=== PATIENT | female | born 1950 | race Caucasian/White ===

== ENCOUNTER → 2016-09-10 | Outpatient (CLI) | payer MEDICARE, OTHER | END | disposition home or self-care (01) | LOC: Rad HDHVI 14:37 | PROVIDERS: ATTEND Internal Medicine Cardiovascular Disease | DX: I73.9 Peripheral vascular disease, unspecified (principal) | CPT/HCPCS: 93926 ==

== ENCOUNTER → 2017-02-05 | Outpatient (CLI) | payer MEDICARE, OTHER ==
[2017-02-05 16:22] LABS: BUN/Creatinine Ratio 35.7; Potassium 4.4 mmol/L (3.5-5.1)
[2017-02-05 16:24] LABS: Basophils # (auto) 0 uL; Basophils % (auto) 0.5 % (0.0-2.0); Eosinophils # (auto) 0 uL; Eosinophils % (auto) 0.5 % (0.0-7.0); Hematocrit 42.2 % (36.0-46.0); Hemoglobin 14.2 g/dL (12.2-16.2); Lymphocytes % (auto) 33.1 % (10.0-50.0); Mean Corpuscular Hemoglobin 28.8 pg (28.0-32.0); Mean Corpuscular Hgb Conc. 33.8 g/dL (32.0-36.0); Mean Corpuscular Volume 85.2 fL (80.0-100.0); Mean Platelet Volume 8.9 fL (6.9-10.8); Monocytes # (auto) 0.3 uL; Monocytes % (auto) 4.3 % (0.0-12.0); Neutrophils # (auto) 3.8 uL; Neutrophils % (auto) 61.6 % (37.0-80.0); Nucleated Red Blood Cells % 0.1 %; Platelet Count (auto) 180 10^3/uL (140-450); White Blood Cell 6.1 10^3/uL (4.4-10.8)
[2017-02-05 16:36] LABS: INR 0.96 (0.9-1.15); Partial Thromboplastin Time 23.3 sec (22.64-33.71); Prothrombin Time 10.5 sec (9.37-12.3)
== END | disposition home or self-care (01) ==
LOC: Rad HDHVI 14:06
PROVIDERS: ATTEND Internal Medicine Cardiovascular Disease
DX: Z01.818 Encounter for other preprocedural examination (principal); I10 Essential (primary) hypertension; D64.9 Anemia, unspecified; R79.1 Abnormal coagulation profile
CPT/HCPCS: 36415; 80048; 85025; 85610; 85730

== ENCOUNTER → 2017-09-24 | Outpatient (CLI) | payer MEDICARE, OTHER ==
[~2017-09-24] MED LIST: EPINEPHrine HCL 1 MG/10 ML SYRG ONE; IOHEXOL 350 MG/ML 100ML IJ ONE; LIDOCAINE 1% (LOCAL ANESTH.) PF 5ml SDV ONE; methylPREDNISolone SOD SUCC 125 MG/2 ML VL IV ONE; methylPREDNISolone SOD SUCC 125 MG/2 ML VL ONE
[2017-09-24 11:25] VITALS: BP 112/59
[2017-09-24 12:20] VITALS: BP 125/69
== END | disposition home or self-care (01) ==
LOC: Rad HDHVI 11:13
PROVIDERS: ATTEND Internal Medicine Cardiovascular Disease
DX: J98.2 Interstitial emphysema (principal); R63.4 Abnormal weight loss; J47.9 Bronchiectasis, uncomplicated; I10 Essential (primary) hypertension; I25.10 Atherosclerotic heart disease of native coronary artery without angina pectoris; K59.00 Constipation, unspecified; R07.9 Chest pain, unspecified; I70.0 Atherosclerosis of aorta; Z90.3 Acquired absence of stomach [part of]; Z90.49 Acquired absence of other specified parts of digestive tract
CPT/HCPCS: 71260; 74177; 82565; 96374; G0463; J2930; Q9967

== ENCOUNTER → 2017-11-11 | Outpatient (CLI) | payer MEDICARE, BC | END | disposition home or self-care (01) | LOC: Rad HDHVI 11:27 | PROVIDERS: ATTEND Internal Medicine Cardiovascular Disease | DX: I07.1 Rheumatic tricuspid insufficiency (principal); I10 Essential (primary) hypertension; E11.9 Type 2 diabetes mellitus without complications; I25.5 Ischemic cardiomyopathy; I73.9 Peripheral vascular disease, unspecified; I20.9 Angina pectoris, unspecified | CPT/HCPCS: 93306; 93926 ==

== ENCOUNTER → 2017-11-28 | Outpatient (CLI) | payer MEDICARE, BC ==
[~2017-11-28] VITALS: Ht 175.3 cm; Wt 56.2 kg
[~2017-11-28] MED LIST changes: +ADENOSINE 47 MG in GIVE UN-DILUTED 0 ML IV ONE; +ADENOSINE 90 MG/30 ML INJ IV ONE; -EPINEPHrine HCL 1 MG/10 ML SYRG ONE; -IOHEXOL 350 MG/ML 100ML IJ ONE; -LIDOCAINE 1% (LOCAL ANESTH.) PF 5ml SDV ONE; -methylPREDNISolone SOD SUCC 125 MG/2 ML VL IV ONE; -methylPREDNISolone SOD SUCC 125 MG/2 ML VL ONE
== END | disposition home or self-care (01) ==
LOC: Rad HDHVI 09:04
PROVIDERS: ATTEND Internal Medicine Cardiovascular Disease
DX: I10 Essential (primary) hypertension (principal); I73.9 Peripheral vascular disease, unspecified; E11.9 Type 2 diabetes mellitus without complications; I20.9 Angina pectoris, unspecified; I25.5 Ischemic cardiomyopathy
CPT/HCPCS: 78452; 93005; 96374; 96375; A9500; J0153

== ENCOUNTER → 2018-01-28 | Outpatient (CLI) | payer MEDICARE, BC ==
[2018-01-28 16:37] LABS: Basophils # (auto) 0 uL; Basophils % (auto) 0.5 % (0.0-2.0); Eosinophils # (auto) 0.4 uL; Eosinophils % (auto) 6.5 % (0.0-7.0); Hematocrit 38.4 % (36.0-46.0); Hemoglobin 12.8 g/dL (12.2-16.2); Lymphocytes # (auto) 2.6 uL; Lymphocytes % (auto) 38.2 % (10.0-50.0); Mean Corpuscular Hemoglobin 28.9 pg (28.0-32.0); Mean Corpuscular Hgb Conc. 33.5 g/dL (32.0-36.0); Mean Corpuscular Volume 86.5 fL (80.0-100.0); Monocytes # (auto) 0.4 uL; Monocytes % (auto) 6.4 % (0.0-12.0); Neutrophils # (auto) 3.2 uL; Neutrophils % (auto) 48.4 % (37.0-80.0); Nucleated Red Blood Cells % 0.1 %; Platelet Count (auto) 168 10^3/uL (140-450); Red Blood Cells 4.44 10^6/uL (4.0-5.20); Red Cell Distribution Width 13.2 % (11.8-14.3); White Blood Cell 6.7 10^3/uL (4.4-10.8)
[2018-01-28 16:52] LABS: Free T4 (Free Thyroxine) 0.97 ng/dL (0.89-1.76)
[2018-01-28 16:57] LABS: Albumin 3.2 g/dL (3.4-5.0); Calcium 8.6 mg/dL (8.5-10.1); Potassium 4.5 mmol/L (3.5-5.1)
[2018-01-28 17:00] LABS: Bilirubin, Total 0.3 mg/dL (0.2-1.0); Total Protein 6.6 g/dL (6.4-8.2)
[2018-01-28 17:02] LABS: INR 1.08 (0.9-1.15); Partial Thromboplastin Time 25.8 sec (23.78-33.04); Prothrombin Time 11.5 sec (9.27-12.13)
== END | disposition home or self-care (01) ==
LOC: LAB 13:01
PROVIDERS: ATTEND Internal Medicine Cardiovascular Disease
DX: E78.5 Hyperlipidemia, unspecified (principal); K74.1 Hepatic sclerosis; E03.9 Hypothyroidism, unspecified; E55.9 Vitamin D deficiency, unspecified; E11.9 Type 2 diabetes mellitus without complications; D51.9 Vitamin B12 deficiency anemia, unspecified; K74.60 Unspecified cirrhosis of liver; D64.9 Anemia, unspecified
CPT/HCPCS: 36415; 80053; 80061; 82306; 82607; 83036; 84439; 84443; 85025; 85610; 85730

== ENCOUNTER → 2018-02-25 | Outpatient (CLI) | payer MEDICARE, BC | END | disposition home or self-care (01) | LOC: Rad HDHVI 15:36 | PROVIDERS: ATTEND Internal Medicine | DX: J18.9 Pneumonia, unspecified organism (principal) | CPT/HCPCS: 71046 ==

== ENCOUNTER 2018-03-23 09:29 | Emergency (ER) | payer MEDICARE, BC, OTHER ==
[~2018-03-23] VITALS: Ht 175.3 cm; Wt 54.9 kg
[2018-03-23 10:21] LABS: Basophils # (auto) 0 uL; Eosinophils # (auto) 0.2 uL; Lymphocytes # (auto) 1.3 uL; Monocytes # (auto) 0.3 uL; Neutrophils # (auto) 5.4 uL
[2018-03-23 10:23] LABS: Basophils % (auto) 0.3 % (0.0-2.0); Eosinophils % (auto) 3.1 % (0.0-7.0); Hematocrit 34.9 % (36.0-46.0); Hemoglobin 11.3 g/dL (12.2-16.2); Lymphocytes % (auto) 18.1 % (10.0-50.0); Mean Corpuscular Hemoglobin 26.3 pg (28.0-32.0); Mean Corpuscular Hgb Conc. 32.4 g/dL (32.0-36.0); Mean Corpuscular Volume 81.3 fL (80.0-100.0); Monocytes % (auto) 4.4 % (0.0-12.0); Neutrophils % (auto) 74.1 % (37.0-80.0); Platelet Count (auto) 159 10^3/uL (140-450); Red Blood Cells 4.29 10^6/uL (4.0-5.20); Red Cell Distribution Width 14.9 % (11.8-14.3); White Blood Cell 7.4 10^3/uL (4.4-10.8)
[2018-03-23 10:31] LABS: Alanine Aminotransferase 53 U/L (13-56); Albumin 3.2 g/dL (3.4-5.0); Anion Gap 7 (5-15); Aspartate Aminotransferase 30 U/L (15-37); BUN/Creatinine Ratio 31.7; Blood Urea Nitrogen 20 mg/dL (7-18); Carbon Dioxide 30 mmol/L (21-32); Chloride 99 mmol/L (98-107); GFR African American 121 mL/min; GFR Non-African American 100 mL/min; Glucose 375 mg/dL (74-106); Potassium 4.2 mmol/L (3.5-5.1); Sodium 136 mmol/L (136-145)
[2018-03-23 10:35] LABS: Alkaline Phosphatase 146 U/L (45-117); Bilirubin, Total 0.3 mg/dL (0.2-1.0); Total Protein 6.7 g/dL (6.4-8.2)
[2018-03-23] MEDS ORDERED: LEVOFLOXACIN 500 MG TAB PO ONE (11:30)
[2018-03-23] MEDS ORDERED: cefTRIAXone 1GM/50ML D5W 50 ML IV ONE (11:45)
[2018-03-23 12:24] VITALS: BP 130/70
== END 2018-03-23 12:56 | disposition home or self-care (01) ==
LOC: EDBD 09:29 → ER 09:29
DX: L03.115 Cellulitis of right lower limb (principal); E11.9 Type 2 diabetes mellitus without complications; Z88.2 Allergy status to sulfonamides; Z91.040 Latex allergy status; Z88.6 Allergy status to analgesic agent; W19.XXXA Unspecified fall, initial encounter; Y93.01 Activity, walking, marching and hiking; Y92.098 Other place in other non-institutional residence as the place of occurrence of the external cause; Y99.8 Other external cause status
CPT/HCPCS: 36415; 71045; 72170; 73562; 80053; 83880; 84484; 85025; 87040; 96365; 99284; J0696

== ENCOUNTER → 2018-04-23 | Outpatient (CLI) | payer MEDICARE, OTHER ==
[~2018-04-23] MED LIST changes: -ADENOSINE 47 MG in GIVE UN-DILUTED 0 ML IV ONE; -ADENOSINE 90 MG/30 ML INJ IV ONE; +ALBUTEROL SULF 2.5 MG/0.5ML(0.5%) NEB SOLN ONE; +SODIUM CHLORIDE 0.9 % NEB SOLN 3ML NEB ONE
== END | disposition home or self-care (01) ==
LOC: RT 08:52
PROVIDERS: ATTEND Internal Medicine Pulmonary Disease
DX: J84.10 Pulmonary fibrosis, unspecified (principal); R06.02 Shortness of breath
CPT/HCPCS: 94010; J7611

== ENCOUNTER → 2018-07-01 | Outpatient (CLI) | payer MEDICARE, OTHER ==
[2018-07-01 16:28] LABS: Urine Blood Negative /uL (Negative); Urine Specific Gravity 1.041 (1.001-1.035)
== END | disposition home or self-care (01) ==
LOC: LAB 13:04
PROVIDERS: ATTEND Internal Medicine Cardiovascular Disease
DX: N39.0 Urinary tract infection, site not specified (principal)
CPT/HCPCS: 81003; 87086

== ENCOUNTER 2018-08-24 00:48 | Inpatient (IN) | payer MEDICARE, OTHER ==
[~2018-08-24] VITALS: Ht 177.8 cm; Wt 53.0 kg
[2018-08-24 01:41] LABS: Basophils # (auto) 0 uL; Basophils % (auto) 0.5 % (0.0-2.0); Eosinophils # (auto) 0.1 uL; Mean Corpuscular Hemoglobin 26.8 pg (28.0-32.0); Mean Corpuscular Hgb Conc. 32.2 g/dL (32.0-36.0); Monocytes # (auto) 0.4 uL
[2018-08-24 01:43] LABS: Hemoglobin 11.3 g/dL (12.2-16.2); Lymphocytes # (auto) 1.3 uL; Mean Corpuscular Volume 83.1 fL (80.0-100.0); Monocytes % (auto) 4.2 % (0.0-12.0); Neutrophils # (auto) 7.6 uL; Neutrophils % (auto) 80.3 % (37.0-80.0); Platelet Count (auto) 184 10^3/uL (140-450); Red Blood Cells 4.21 10^6/uL (4.0-5.20); Red Cell Distribution Width 15.3 % (11.8-14.3); White Blood Cell 9.5 10^3/uL (4.4-10.8)
[2018-08-24 01:59] LABS: Alanine Aminotransferase 47 U/L (13-56); Albumin 3.5 g/dL (3.4-5.0); Anion Gap 8 (5-15); Aspartate Aminotransferase 24 U/L (15-37); BUN/Creatinine Ratio 28.4; Blood Urea Nitrogen 19 mg/dL (7-18); Calcium 8.4 mg/dL (8.5-10.1); Carbon Dioxide 31 mmol/L (21-32); Chloride 99 mmol/L (98-107); GFR African American 113 mL/min; GFR Non-African American 93 mL/min; Magnesium 1.8 mg/dL (1.6-2.6); Potassium 4.1 mmol/L (3.5-5.1); Sodium 138 mmol/L (136-145)
[2018-08-24 02:04] LABS: Alkaline Phosphatase 174 U/L (45-117); Bilirubin, Total 0.4 mg/dL (0.2-1.0)
[2018-08-24 02:06] LABS: Glucose 425 mg/dL (74-106)
[2018-08-24] MEDS ORDERED: InsuLIN REG 1unit/0.01ml Soln (100units/ml) SC ONE (03:00)
[2018-08-24] MEDS ORDERED: SODIUM CHLORIDE 0.9% 1,000 ML IV ONE ×4 (03:00→21:00)
[2018-08-24] MEDS ORDERED: ACETAMINOPHEN 325 MG TAB PO ONE (03:00)
[2018-08-24 03:09] LABS: Urine Bacteria NONE SEEN /hpf (None Seen); Urine Blood Negative /uL (Negative); Urine Specific Gravity 1.029 (1.001-1.035); Urine WBC <1 /hpf (0 - 5)
[2018-08-24] MEDS ORDERED: methylPREDNISolone SOD SUCC 125 MG/2 ML VL IV ONE (08:00)
[2018-08-24] MEDS ORDERED: PIPERACILLIN-TAZOB 3.375GM 100 ML IV ONE (08:00)
[2018-08-24] MEDS ORDERED: BUPR300T28 PO (10:03)
[2018-08-24] MEDS ORDERED: MAGN400T5 PO (10:03)
[2018-08-24] MEDS ORDERED: TRIA0.5C10 TOP (10:03)
[2018-08-24] MEDS ORDERED: PREG150C PO (10:03)
[2018-08-24] MEDS ORDERED: FLUC200T50 PO ×2 (10:03→16:46)
[2018-08-24] MEDS ORDERED: LIDO2SOL18 PO (10:03)
[2018-08-24] MEDS ORDERED: HYDR-4924 PO (10:03)
[2018-08-24] MEDS ORDERED: NYST1POW12 XX (10:03)
[2018-08-24] MEDS ORDERED: LEVO112T35 PO (10:03)
[2018-08-24] MEDS ORDERED: Glucerna Carbsteady SHAKE Vanilla 8oz PO ONE (13:15)
[2018-08-24] MEDS ORDERED: InsuLIN REG 1unit/0.01ml Soln (100units/ml) ONE (14:08)
[2018-08-24] MEDS ORDERED: InsuLIN REG 1unit/0.01ml Soln (100units/ml) IV ONE ×2 (14:15→21:00)
[2018-08-24] MEDS ORDERED: CLOT1CRE13 TOP (16:46)
[2018-08-24] MEDS ORDERED: PRIM50TA29 PO (16:46)
[2018-08-24] MEDS ORDERED: NITROGLYCERIN 0.4 MG SL TAB SL PRN (17:00)
[2018-08-24] MEDS ORDERED: INSULIN LANTUS (GLARGINE) 1 /0.01ml (100units/ml) SC ONE (17:00)
[2018-08-24] MEDS ORDERED: ONDANSETRON HCL 4 MG/2 ML VIAL IV PRN (17:00)
[2018-08-24] MEDS ORDERED: MORPHINE SULF INJ 2 MG/ML SYRINGE 1ML IV PRN ×2 (17:00)
[2018-08-24] MEDS ORDERED: HYDROcodone-ACET 5/325MG TAB PO PRN (17:00)
[2018-08-24] MEDS ORDERED: DEXTROSE (50%) 50ML SYRG IV PRN (17:00)
[2018-08-24] MEDS ORDERED: ACETAMINOPHEN 500 MG TAB PO PRN (17:00)
[2018-08-24] MEDS: SODIUM CHLORIDE 0.9% 1,000 ML IV SCH (17:18)
[2018-08-24] MEDS ORDERED: cefTRIAXone 1GM/50ML D5W 50 ML IV SCH (17:30)
[2018-08-24] MEDS ORDERED: metroNIDAZOLE 500MG/100ML 100 ML IV SCH (18:00)
[2018-08-24] MEDS ORDERED: AZITHROMYCIN 500MG/ 250ML 250 ML IV SCH (18:00)
[2018-08-24] MEDS: IPRATROPIUM BROM 0.5 MG/2.5ML INH SOL NEB SCH (18:19)
[2018-08-24] MEDS: ALBUTEROL SULF 2.5 MG/0.5ML(0.5%) NEB SOLN NEB SCH (18:19)
[2018-08-24] MEDS: Glucerna Carbsteady SHAKE Stawberry 8oz PO SCH (19:15)
[2018-08-24] MEDS: InsuLIN REG 1unit/0.01ml Soln (100units/ml) SC SCH (20:00)
[2018-08-24] MEDS: metroNIDAZOLE 500MG/100ML 100 ML IV SCH (20:00)
[2018-08-24] MEDS: ACCU-CHEK COMFORT CURVE STRIP VI SCH (20:00)
[2018-08-24 21:11] VITALS: BP 135/69
[2018-08-24 22:30] VITALS: BP 131/61
--- NOTE | 2018-08-24 23:00 | NUR ---
MS admit from [facility] admitted to tele/MS after SBAR received. Patient oriented to FLAKITA BLAIR RN primary RN, unit, room, bed, and unit policies regarding patient care and visiting hours. Patient weighed by bedscale and encouraged to call if needed something. All questions and concerns addressed, patient verbalized understanding. Note: Patient came in with multiple wounds, pressure sores, photographed and documented, pending WOCN and Nutrition consult. Emphasized safety, use of call light and bed alarms. Patient has had multiple falls, she is able to walk to the bathroom with assist and oxygen. Patient uses 4L/NC oxygen at home.
[2018-08-25] MEDS: ACCU-CHEK COMFORT CURVE STRIP VI SCH ×4 (00:02→12:00)
[2018-08-25] MEDS: InsuLIN REG 1unit/0.01ml Soln (100units/ml) SC SCH ×4 (00:04→12:00)
[2018-08-25] MEDS ORDERED: MULT-931 PO (01:57)
[2018-08-25] MEDS ORDERED: CYA100I IM (02:13)
[2018-08-25] MEDS ORDERED: CHOL20007 PO (02:13)
[2018-08-25] MEDS ORDERED: MAGN400T5 PO (02:13)
[2018-08-25] MEDS ORDERED: HYDR50TA32 PO (02:13)
[2018-08-25] MEDS ORDERED: MUPI2CRE17 EX (02:13)
[2018-08-25] MEDS ORDERED: TRIAPOW6 XX (02:13)
[2018-08-25] MEDS ORDERED: FLUO20CA19 PO (02:13)
[2018-08-25] MEDS ORDERED: DIPH25CA66 PO (02:13)
[2018-08-25] MEDS ORDERED: MULT1TAB96 PO (02:13)
[2018-08-25] MEDS ORDERED: LEV100T PO (02:13)
[2018-08-25] MEDS ORDERED: KETO2CRE4 EX (02:13)
[2018-08-25] MEDS: SODIUM CHLORIDE 0.9% 1,000 ML IV SCH (02:15)
[2018-08-25] MEDS: metroNIDAZOLE 500MG/100ML 100 ML IV SCH ×2 (02:20→08:42)
--- NOTE | 2018-08-25 03:32 | NUR ---
SACRAL WOUND CULTURE SENT PER PROTOCOL.
[2018-08-25 05:00] VITALS: BP 122/59
[2018-08-25 06:45] LABS: Basophils # (auto) 0.1 uL; Basophils % (auto) 0.6 % (0.0-2.0); Eosinophils # (auto) 0.2 uL; Eosinophils % (auto) 2.1 % (0.0-7.0); Hematocrit 30.2 % (36.0-46.0); Hemoglobin 9.9 g/dL (12.2-16.2); Lymphocytes # (auto) 2.4 uL; Mean Corpuscular Hemoglobin 27.5 pg (28.0-32.0); Mean Corpuscular Hgb Conc. 32.9 g/dL (32.0-36.0); Mean Corpuscular Volume 83.7 fL (80.0-100.0); Monocytes # (auto) 0.5 uL; Monocytes % (auto) 6.1 % (0.0-12.0); Neutrophils # (auto) 5.5 uL; Neutrophils % (auto) 63.2 % (37.0-80.0); Nucleated Red Blood Cells % 0.1 %; Platelet Count (auto) 153 10^3/uL (140-450); Red Blood Cells 3.61 10^6/uL (4.0-5.20); Red Cell Distribution Width 15.3 % (11.8-14.3); White Blood Cell 8.7 10^3/uL (4.4-10.8)
[2018-08-25] MEDS: ALBUTEROL SULF 2.5 MG/0.5ML(0.5%) NEB SOLN NEB SCH ×2 (06:45→12:00)
[2018-08-25] MEDS: IPRATROPIUM BROM 0.5 MG/2.5ML INH SOL NEB SCH ×2 (06:45→12:00)
[2018-08-25 06:56] LABS: Potassium 3.3 mmol/L (3.5-5.1)
[2018-08-25] MEDS ORDERED: LEVOTHYROXINE SODIUM 112 MCG TAB PO SCH (07:00)
[2018-08-25 07:13] LABS: Calcium 7.9 mg/dL (8.5-10.1)
--- NOTE | 2018-08-25 07:30 | NUR ---
Morning note patient resting in bed with even and unlabored respirations, no distress noted. Instructed patient on POC, fall precautions and to call for assistance as needed. Patient verbalized understanding. Fall precautions in place with bed in lowest locked position with x2 side rails up and call light within reach. Bed alarm on for safety. Will continue to monitor q1hr & PRN.
--- NOTE | 2018-08-25 08:22 | NUR ---
RE: giving medications Keith, patient's , notified this RN that he will be giving the patient her scheduled medications from home. Keith stated "I don't care what you have scheduled, I'm going to give her these medications because it has taken me months to get her straight and not all crazy in the head. I manage her medications. Some of these medications she doesn't take every day. The doctors had her so doped up with some medications that she was falling all over the place. You guys control her medications and it will take weeks to get her back on schedule." educated and advised to not administer home medications. Keith verbalized understanding. Keith stated "Well, I am. You can give her the antibiotics and the insulin." Keith showed this RN a pill box that he reports has 5 medications in it. This RN visualized a multi day pill box that had multiple pills in each day slot. The pills are loose and not in a pill package. Keith does not know all of the medications located in the pill box. Will continue to monitor q1hr & PRN.
[2018-08-25] MEDS: Glucerna Carbsteady SHAKE Stawberry 8oz PO SCH ×2 (08:30→12:00)
[2018-08-25 08:33] VITALS: BP 117/56
--- NOTE | 2018-08-25 08:43 | NUR ---
Patient refusing medication Patient refusing IV antibiotics that are scheduled. Patient requesting to have IV removed at this time. Patient refusing to have new IV initiated. Eduction provided to the patient. Patient verbalized understanding. Patient's is at bedside. Notified Dr. Velazquez. Will continue to monitor q1hr & PRN.
--- NOTE | 2018-08-25 08:51 | NUR ---
Updated - Dr. Marcus Velazquez updated on patient's status, medications, tests, and labs. MD verbalized understanding. Orders received and read back to verify.
[2018-08-25] MEDS ORDERED: EZ-GAS II GRANULES (RADIOLOGY USE) PO ONE (09:28)
[2018-08-25] MEDS ORDERED: EZ PAQUE SUSP 12OZ BTL ONE (09:28)
[2018-08-25] MEDS ORDERED: GASTROGRAFIN 120 ML SOL ONE (09:28)
[2018-08-25] MEDS ORDERED: AZITHROMYCIN 250 MG TAB PO SCH (10:00)
--- NOTE | 2018-08-25 10:57 | NUR ---
Prescription called into patient's preferred pharmacy per MD's orders. Spoke with Peter, pharmacist.
--- NOTE | 2018-08-25 12:12 | NUR ---
Respiratory note: SCHEDULED MED NEB TX NOT GIVEN. PT IS DISCHARGED AND WAITING TO GO HOME. NO DISTRESS NOTED. RN AT BEDSIDE.
--- NOTE | 2018-08-25 12:30 | NUR ---
WOUND CARE NOTE: Attempted to see patient per wound xcare request regarding "sacral wound, left upper arm skin tear". Per patient's nurse, CHRISTOFER Aldana. Patient has Discharged home order and will be going home in few minutes. She added that patient also to [place] [facility] Health order.
--- NOTE | 2018-08-25 12:33 | NUR ---
Discharge Discharge education and paperwork provided to patient per MD's order. Patient verbalized understanding. No IV access at this time. Patient collected all personal belongings. Patient taken to private vehicle via wheelchair with staff member at side. Patient's to transport her to place of residence. No distress noted. Choice letter signed by patient. Letter given to ramiro Villagomez RN.
--- NOTE | 2018-08-25 15:13 | NUR ---
[facility] Patient has signed choice letter per nurse. Patient was discharged prior to home health being set up. Patient is on service with [facility]. MD order sent to [facility]. Per Norma at [facility] will resume on Addendum: 08/27/18 at 1515 by Ana Thakkar Amended: Links added.
== END 2018-08-25 12:30 | disposition home health service (06) | DRG 177 ==
LOC: EDBD 00:48 → ER 00:59 → OVERFLOW 17:04 → WEST WING 22:11
PROVIDERS: ADMIT Nurse Practitioner Acute Care; ATTEND Internal Medicine
DX: J69.0 Pneumonitis due to inhalation of food and vomit (principal); J96.20 Acute and chronic respiratory failure, unspecified whether with hypoxia or hypercapnia; J44.0 Chronic obstructive pulmonary disease with (acute) lower respiratory infection; E11.65 Type 2 diabetes mellitus with hyperglycemia; I10 Essential (primary) hypertension; D63.8 Anemia in other chronic diseases classified elsewhere; E78.5 Hyperlipidemia, unspecified; M48.02 Spinal stenosis, cervical region; M85.80 Other specified disorders of bone density and structure, unspecified site; R13.10 Dysphagia, unspecified; Z96.649 Presence of unspecified artificial hip joint; Z98.84 Bariatric surgery status; W18.30XA Fall on same level, unspecified, initial encounter; Y93.89 Activity, other specified; Y92.89 Other specified places as the place of occurrence of the external cause; Y99.8 Other external cause status; Z90.49 Acquired absence of other specified parts of digestive tract; Z88.6 Allergy status to analgesic agent; Z88.8 Allergy status to other drugs, medicaments and biological substances; Z88.2 Allergy status to sulfonamides; Z91.040 Latex allergy status
CPT/HCPCS: 36415; 51702; 70450; 71045; 72125; 72192; 73502; 80048; 80053; 80061; 81001; 82962; 83036; 83735; 84443; 84484; 85025; 87040; 87205; 94640; 96365; 96366; 96372; 96375; G0378; J0696; J1815; J2543; J3490

== ENCOUNTER → 2018-08-31 | Outpatient (CLI) | payer MEDICARE, BC, OTHER ==
[~2018-08-31] MED LIST changes: -ALBUTEROL SULF 2.5 MG/0.5ML(0.5%) NEB SOLN ONE; +BUPR300T28 PO; +CHOL20007 PO; +CLOT1CRE13 TOP; +CYA100I IM; +DIPH25CA66 PO; +FLUC200T50 PO; +FLUO20CA19 PO; +HYDR50TA32 PO; +KETO2CRE4 EX; +LEV100T PO; +MAGN400T5 PO; +MULT-931 PO; +MULT1TAB96 PO; +MUPI2CRE17 EX; +PREG150C PO; +PRIM50TA29 PO; -SODIUM CHLORIDE 0.9 % NEB SOLN 3ML NEB ONE; +TRIAPOW6 XX
== END | disposition home or self-care (01) ==
LOC: Rad HDHVI 16:44
PROVIDERS: ATTEND Internal Medicine Cardiovascular Disease
DX: J18.9 Pneumonia, unspecified organism (principal); R91.8 Other nonspecific abnormal finding of lung field
CPT/HCPCS: 71046

== ENCOUNTER 2018-10-19 01:39 | Emergency (ER) | payer MEDICARE, BC, OTHER ==
[~2018-10-19] VITALS: Ht 167.6 cm; Wt 53.1 kg
[2018-10-19 02:22] LABS: Basophils # (auto) 0.1 uL; Basophils % (auto) 1.2 % (0.0-2.0); Eosinophils # (auto) 0 uL; Eosinophils % (auto) 0.7 % (0.0-7.0); Hematocrit 35.4 % (36.0-46.0); Hemoglobin 11.8 g/dL (12.2-16.2); Lymphocytes # (auto) 1.9 uL; Lymphocytes % (auto) 27.4 % (10.0-50.0); Mean Corpuscular Hgb Conc. 33.4 g/dL (32.0-36.0); Mean Corpuscular Volume 80.9 fL (80.0-100.0); Monocytes # (auto) 0.2 uL; Monocytes % (auto) 2.6 % (0.0-12.0); Neutrophils # (auto) 4.8 uL; Neutrophils % (auto) 68.1 % (37.0-80.0); Platelet Count (auto) 211 10^3/uL (140-450); Red Blood Cells 4.37 10^6/uL (4.0-5.20); Red Cell Distribution Width 14.9 % (11.8-14.3)
[2018-10-19 02:35] LABS: Alanine Aminotransferase 49 U/L (13-56); Albumin 3.6 g/dL (3.4-5.0); Anion Gap 9 (5-15); Aspartate Aminotransferase 29 U/L (15-37); BUN/Creatinine Ratio 30.9; Blood Urea Nitrogen 21 mg/dL (7-18); Calcium 8.6 mg/dL (8.5-10.1); Carbon Dioxide 28 mmol/L (21-32); Chloride 102 mmol/L (98-107); GFR African American 111 mL/min; GFR Non-African American 91 mL/min; Glucose 313 mg/dL (74-106); Magnesium 2.1 mg/dL (1.6-2.6); Potassium 3.8 mmol/L (3.5-5.1); Sodium 139 mmol/L (136-145)
[2018-10-19 02:38] LABS: Alkaline Phosphatase 197 U/L (45-117); Bilirubin, Total 0.4 mg/dL (0.2-1.0); INR 0.98 (0.9-1.15); Partial Thromboplastin Time 21.5 sec (23.64-32.05); Total Protein 7.1 g/dL (6.4-8.2)
[2018-10-19] MEDS ORDERED: PROMETHAZINE HCL 25 MG/ML 1ML IV ONE (03:30)
[2018-10-19] MEDS ORDERED: LORazepam 2MG/ML-1ML VIAL IV ONE (04:30)
[2018-10-19] MEDS ORDERED: METOCLOPRAMIDE HCL 5MG/ml INJ 2ml VIAL IV ONE (04:30)
[2018-10-19 05:30] VITALS: BP 156/88
[2018-10-19] MEDS ORDERED: InsuLIN REG 1unit/0.01ml Soln (100units/ml) IV ONE (05:45)
== END 2018-10-19 05:29 | disposition home or self-care (01) ==
LOC: EDBD 01:39 → ER 01:44
DX: K52.9 Noninfective gastroenteritis and colitis, unspecified (principal); J44.9 Chronic obstructive pulmonary disease, unspecified; E11.9 Type 2 diabetes mellitus without complications; Z79.899 Other long term (current) drug therapy; Z88.6 Allergy status to analgesic agent; Z88.2 Allergy status to sulfonamides; Z91.040 Latex allergy status
CPT/HCPCS: 36415; 71045; 74176; 80053; 82962; 83735; 83880; 84484; 85025; 85610; 85730; 93005; 96374; 96375; 99284; J1815; J2060; J2550; J2765

== ENCOUNTER → 2018-11-11 | Outpatient (CLI) | payer MEDICARE, BC, OTHER | END | disposition home or self-care (01) | LOC: RT 14:40 | PROVIDERS: ATTEND Internal Medicine Pulmonary Disease | DX: J84.10 Pulmonary fibrosis, unspecified (principal) | CPT/HCPCS: 36600; 82805 ==

== ENCOUNTER → 2019-01-20 | Outpatient (CLI) | payer MEDICARE, BC, OTHER ==
[2019-01-20 15:50] LABS: Urine Blood Negative /uL (Negative); Urine Specific Gravity 1.033 (1.001-1.035)
[2019-01-20 15:55] LABS: Basophils # (auto) 0.1 uL; Basophils % (auto) 0.8 % (0.0-2.0); Eosinophils # (auto) 0.3 uL; Eosinophils % (auto) 4.3 % (0.0-7.0); Hematocrit 32.8 % (36.0-46.0); Hemoglobin 10.9 g/dL (12.2-16.2); Lymphocytes # (auto) 1.7 uL; Lymphocytes % (auto) 25.2 % (10.0-50.0); Mean Corpuscular Hemoglobin 25.7 pg (28.0-32.0); Mean Corpuscular Hgb Conc. 33.4 g/dL (32.0-36.0); Mean Corpuscular Volume 77.1 fL (80.0-100.0); Monocytes # (auto) 0.4 uL; Monocytes % (auto) 5.4 % (0.0-12.0); Neutrophils # (auto) 4.3 uL; Neutrophils % (auto) 64.3 % (37.0-80.0); Platelet Count (auto) 200 10^3/uL (140-450); Red Blood Cells 4.25 10^6/uL (4.0-5.20); Red Cell Distribution Width 16.5 % (11.8-14.3); White Blood Cell 6.7 10^3/uL (4.4-10.8)
[2019-01-20 16:01] LABS: Albumin 3.3 g/dL (3.4-5.0); Calcium 8.6 mg/dL (8.5-10.1); Potassium 3.6 mmol/L (3.5-5.1)
[2019-01-20 16:07] LABS: BUN/Creatinine Ratio 20.3; Bilirubin, Total 0.4 mg/dL (0.2-1.0); Total Protein 6.7 g/dL (6.4-8.2)
[2019-01-20 16:10] LABS: Free T4 (Free Thyroxine) 0.84 ng/dL (0.89-1.76)
== END | disposition home or self-care (01) ==
LOC: Rad HDHVI 11:08
PROVIDERS: ATTEND Internal Medicine Cardiovascular Disease
DX: E03.9 Hypothyroidism, unspecified (principal); K90.9 Intestinal malabsorption, unspecified; N39.0 Urinary tract infection, site not specified; D51.9 Vitamin B12 deficiency anemia, unspecified; E11.319 Type 2 diabetes mellitus with unspecified diabetic retinopathy without macular edema; R06.02 Shortness of breath; R42 Dizziness and giddiness; Z79.899 Other long term (current) drug therapy
CPT/HCPCS: 36415; 80053; 80061; 81003; 82306; 82607; 83036; 84439; 84443; 85025; 93880

== ENCOUNTER → 2019-01-22 | Outpatient (CLI) | payer MEDICARE, BC, OTHER | END | disposition home or self-care (01) | LOC: Rad HDHVI 10:46 | PROVIDERS: ATTEND Internal Medicine Cardiovascular Disease | DX: J44.9 Chronic obstructive pulmonary disease, unspecified (principal); R07.89 Other chest pain; R53.1 Weakness | CPT/HCPCS: 93306 ==

== ENCOUNTER → 2019-02-03 | Outpatient (CLI) | payer MEDICARE, BC, OTHER ==
[~2019-02-03] VITALS: Ht 172.7 cm; Wt 56.7 kg
[~2019-02-03] MED LIST changes: +ADENOSINE 48 MG in GIVE UN-DILUTED 0 ML IV ONE; +ADENOSINE 90 MG/30 ML INJ IV ONE
== END | disposition home or self-care (01) ==
LOC: Rad HDHVI 09:48
PROVIDERS: ATTEND Internal Medicine Cardiovascular Disease
DX: R42 Dizziness and giddiness (principal); E11.9 Type 2 diabetes mellitus without complications
CPT/HCPCS: 78452; 93005; 96374; 96375; A9500; J0153

== ENCOUNTER → 2019-07-06 | Outpatient (CLI) | payer MEDICARE, BC, OTHER ==
[~2019-07-06] MED LIST changes: -ADENOSINE 48 MG in GIVE UN-DILUTED 0 ML IV ONE; -ADENOSINE 90 MG/30 ML INJ IV ONE; +MAGN400T40 PO; -MAGN400T5 PO
[2019-07-06 11:20] LABS: Calcium 8.6 mg/dL (8.5-10.1); Potassium 3.9 mmol/L (3.5-5.1)
[2019-07-06 11:22] LABS: BUN/Creatinine Ratio 14.5
== END | disposition home or self-care (01) ==
LOC: LAB 10:37
PROVIDERS: ATTEND Internal Medicine
DX: E11.9 Type 2 diabetes mellitus without complications (principal); E55.9 Vitamin D deficiency, unspecified; D64.9 Anemia, unspecified
CPT/HCPCS: 36415; 80048; 82043; 82306; 84443

== ENCOUNTER → 2019-07-14 | Outpatient (CLI) | payer MEDICARE, BC, OTHER | END | disposition home or self-care (01) | LOC: Rad HDHVI 10:02 | PROVIDERS: ATTEND Internal Medicine Cardiovascular Disease | DX: I73.9 Peripheral vascular disease, unspecified (principal) | CPT/HCPCS: 93925 ==

== ENCOUNTER → 2019-09-01 | Outpatient (CLI) | payer MEDICARE, BC, OTHER | END | disposition home or self-care (01) | LOC: Rad HDHVI 12:18 | PROVIDERS: ATTEND Internal Medicine Cardiovascular Disease | DX: I70.0 Atherosclerosis of aorta (principal); R06.02 Shortness of breath | CPT/HCPCS: 71046 ==

== ENCOUNTER → 2019-11-17 | Outpatient (CLI) | payer MEDICARE, BC, OTHER | END | disposition home or self-care (01) | LOC: Rad HDHVI 15:45 | PROVIDERS: ATTEND Internal Medicine Cardiovascular Disease | DX: J20.9 Acute bronchitis, unspecified (principal); J44.9 Chronic obstructive pulmonary disease, unspecified; I73.9 Peripheral vascular disease, unspecified | CPT/HCPCS: 93306 ==

== ENCOUNTER 2021-05-13 13:58 | Inpatient (IN) | payer MEDICARE, BC, OTHER ==
[~2021-05-13] VITALS: Ht 157.5 cm; Wt 82.1 kg
[~2021-05-13 13:58] MED LIST changes: +PRIM50TA27 PO; -PRIM50TA29 PO
[2021-05-13] MEDS ORDERED: cefTRIAXone 1GM/50ML D5W 50 ML IV ONE (14:15)
[2021-05-13] MEDS ORDERED: SODIUM CHLORIDE 0.9% 1,000 ML IV ONE (14:30)
[2021-05-13 15:52] LABS: Basophils # (auto) 0.1 10 ^3/uL (0-0.2); Basophils % (auto) 0.4 % (0.0-2.0); Eosinophils # (auto) 0.1 10 ^3/uL (0-0.8); Eosinophils % (auto) 0.4 % (0.0-7.0); Hematocrit 34.5 % (36.0-46.0); Hemoglobin 11.3 g/dL (12.2-16.2); Lymphocytes # (auto) 4.5 10 ^3/uL (0.4-5.4); Lymphocytes % (auto) 29.6 % (10.0-50.0); Mean Corpuscular Hemoglobin 29.9 pg (28.0-32.0); Mean Corpuscular Hgb Conc. 32.8 g/dL (32.0-36.0); Mean Corpuscular Volume 91.2 fL (80.0-100.0); Monocytes % (auto) 6.3 % (0.0-12.0); Neutrophils # (auto) 9.7 10 ^3/uL (1.6-8.6); Neutrophils % (auto) 63.3 % (37.0-80.0); Red Blood Cells 3.78 10^6/uL (4.0-5.20); White Blood Cell 15.3 10^3/uL (4.4-10.8)
[2021-05-13 16:25] LABS: Albumin 2.3 g/dL (3.4-5.0); Calcium 7.9 mg/dL (8.5-10.1)
[2021-05-13 16:32] LABS: BUN/Creatinine Ratio 14.2; Bilirubin, Total 0.6 mg/dL (0.2-1.0); Total Protein 6.4 g/dL (6.4-8.2)
[2021-05-13 16:47] LABS: Potassium 5.7 mmol/L (3.5-5.1)
[2021-05-13 17:24] LABS: Urine Amorphous Crystal FEW /hpf (None Seen); Urine Bacteria FEW /hpf (None Seen); Urine Blood Negative /uL (Negative); Urine Hyaline Cast FEW /lpf (0 - 2); Urine Specific Gravity 1.025 (1.001-1.035); Urine WBC <1 /hpf (0 - 5)
[2021-05-13] MEDS ORDERED: SODIUM ZIRCONIUM CYCL 10 GM PAK PO ONE (18:00)
[2021-05-13] MEDS ORDERED: FUROSEMIDE 20 MG/2 ML VIAL IV ONE (18:00)
[2021-05-13] MEDS ORDERED: DEXTROSE (50%) 50ML SYRG IV ONE (18:00)
[2021-05-13] MEDS ORDERED: InsuLIN REG 1unit/0.01ml Soln (100units/ml) IV ONE (18:00)
[2021-05-13] MEDS ORDERED: CALCIUM GLUC 1,000mg/50ml-NS 50 ML IV ONE (18:00)
[2021-05-13] MEDS ORDERED: SODIUM BICARBONATE 8.4% INJ 50ML SYRINGE IV ONE (18:00)
[2021-05-13] MEDS ORDERED: ALBUTEROL SULF 2.5 MG/0.5ML(0.5%) NEB SOLN NEB ONE (18:00)
[2021-05-13 20:17] LABS: INR 1.21 (0.9-1.15); Partial Thromboplastin Time 22.2 sec (23.6-33.0)
[2021-05-13] MEDS ORDERED: NITROGLYCERIN 0.4 MG SL TAB SL PRN (20:45)
[2021-05-13] MEDS ORDERED: TEMAZEPAM 15 MG CAP PO PRN (20:45)
[2021-05-13] MEDS ORDERED: AZITHROMYCIN 500MG/ 250ML 250 ML IV ONE (20:45)
[2021-05-13] MEDS ORDERED: DEXTROSE (50%) 50ML SYRG IV PRN (20:45)
[2021-05-13] MEDS ORDERED: ACETAMINOPHEN 325 MG TAB PO PRN (20:45)
[2021-05-13] MEDS ORDERED: MORPHINE SULFATE INJECTION 2 MG/ML SYRG IV PRN (20:45)
[2021-05-13] MEDS ORDERED: ALBUMIN 5% 250 ML IV ONE (20:45)
[2021-05-13] MEDS: SODIUM CHLORIDE 0.9% 1,000 ML IV SCH (21:11)
[2021-05-13 21:14] LABS: Potassium 4.6 mmol/L (3.5-5.1)
[2021-05-13] MEDS: InsuLIN REG 1unit/0.01ml Soln (100units/ml) SC SCH (22:25)
[2021-05-13] MEDS: ACCU-CHEK COMFORT CURVE STRIP VI SCH (22:28)
[2021-05-13 22:55] LABS: Potassium 4.6 mmol/L (3.5-5.1)
[2021-05-13] MEDS ORDERED: NOREPINEPHRINE 8 MG/250ML KIT 250 ML IV SCH (23:00)
[2021-05-13] MEDS ORDERED: NOREPINEPHRINE 8 MG/250ML KIT 250 ML IV ONE (23:02)
[2021-05-13] MEDS ORDERED: ENOXAPARIN SOD 100 MG/1 ML SYRINGE SC ONE (23:30)
[2021-05-14] MEDS: ACCU-CHEK COMFORT CURVE STRIP VI SCH ×4 (06:43→22:28)
[2021-05-14] MEDS: InsuLIN REG 1unit/0.01ml Soln (100units/ml) SC SCH ×4 (06:44→22:28)
[2021-05-14 08:36] LABS: Basophils # (auto) 0 10 ^3/uL (0-0.2); Basophils % (auto) 0.3 % (0.0-2.0); Eosinophils # (auto) 0.1 10 ^3/uL (0-0.8); Eosinophils % (auto) 0.7 % (0.0-7.0); Hematocrit 28.4 % (36.0-46.0); Hemoglobin 9.3 g/dL (12.2-16.2); Lymphocytes # (auto) 1.7 10 ^3/uL (0.4-5.4); Lymphocytes % (auto) 18.7 % (10.0-50.0); Mean Corpuscular Hemoglobin 29.9 pg (28.0-32.0); Mean Corpuscular Hgb Conc. 32.9 g/dL (32.0-36.0); Mean Corpuscular Volume 90.8 fL (80.0-100.0); Monocytes # (auto) 0.5 10 ^3/uL (0-1.3); Neutrophils # (auto) 6.9 10 ^3/uL (1.6-8.6); Neutrophils % (auto) 75.3 % (37.0-80.0); Red Blood Cells 3.13 10^6/uL (4.0-5.20); Red Cell Distribution Width 15.2 % (11.8-14.3); White Blood Cell 9.1 10^3/uL (4.4-10.8)
[2021-05-14 08:44] LABS: Albumin 2.3 g/dL (3.4-5.0); Calcium 7.4 mg/dL (8.5-10.1); Potassium 4.2 mmol/L (3.5-5.1)
[2021-05-14 08:47] LABS: BUN/Creatinine Ratio 15.8; Bilirubin, Total 0.4 mg/dL (0.2-1.0); Total Protein 5.6 g/dL (6.4-8.2)
[2021-05-14] MEDS: AZITHROMYCIN 500MG/ 250ML 250 ML IV SCH (11:24)
[2021-05-14] MEDS: cefTRIAXone 1GM/50ML D5W 50 ML IV SCH (11:24)
[2021-05-14] MEDS: SODIUM CHLORIDE 0.9% 1,000 ML IV SCH (11:25)
[2021-05-14 16:04] LABS: Magnesium 1.8 mg/dL (1.6-2.6); Phosphorus 4.5 mg/dL (2.5-4.90)
[2021-05-14 22:05] VITALS: BP 115/60
[2021-05-15] MEDS: SODIUM CHLORIDE 0.9% 1,000 ML IV SCH ×2 (03:33→12:08)
[2021-05-15 04:20] VITALS: BP 122/64
[2021-05-15] MEDS: ACCU-CHEK COMFORT CURVE STRIP VI SCH ×4 (06:25→21:37)
[2021-05-15] MEDS: InsuLIN REG 1unit/0.01ml Soln (100units/ml) SC SCH ×4 (06:25→21:37)
[2021-05-15 07:46] LABS: Calcium 7.7 mg/dL (8.5-10.1); Potassium 3.8 mmol/L (3.5-5.1)
[2021-05-15 09:00] VITALS: BP 140/56
[2021-05-15] MEDS: cefTRIAXone 1GM/50ML D5W 50 ML IV SCH (09:04)
[2021-05-15] MEDS: AZITHROMYCIN 500MG/ 250ML 250 ML IV SCH (10:00)
[2021-05-15 13:00] VITALS: BP 136/63
[2021-05-15 17:00] VITALS: BP 138/59
[2021-05-15 22:00] VITALS: BP 155/71
[2021-05-15] MEDS ORDERED: SOD CHL 0.45% 1,000 ML IV SCH (22:15)
[2021-05-15] MEDS: CHOLESTYRAMINE 4 GM POWDER GT SCH (23:35)
[2021-05-16 05:00] VITALS: BP 147/61
[2021-05-16] MEDS: InsuLIN REG 1unit/0.01ml Soln (100units/ml) SC SCH ×4 (06:26→22:00)
[2021-05-16] MEDS: ACCU-CHEK COMFORT CURVE STRIP VI SCH ×4 (06:27→22:00)
[2021-05-16] MEDS: cefTRIAXone 1GM/50ML D5W 50 ML IV SCH (08:32)
[2021-05-16 08:36] LABS: Potassium 3.6 mmol/L (3.5-5.1)
[2021-05-16 08:49] LABS: BUN/Creatinine Ratio 22.5
[2021-05-16 09:00] VITALS: BP 154/67
[2021-05-16] MEDS: CHOLESTYRAMINE 4 GM POWDER GT SCH ×2 (10:49→22:27)
[2021-05-16 13:00] VITALS: BP 126/60
[2021-05-16 17:00] VITALS: BP 145/67
[2021-05-16] MEDS: metroNIDAZOLE 500MG/100ML 100 ML IV SCH (22:11)
[2021-05-17 05:22] VITALS: BP 162/77
[2021-05-17 06:01] LABS: Albumin 2.2 g/dL (3.4-5.0); Calcium 7.7 mg/dL (8.5-10.1); Potassium 3.6 mmol/L (3.5-5.1)
[2021-05-17 06:04] LABS: BUN/Creatinine Ratio 19.4; Bilirubin, Total 0.4 mg/dL (0.2-1.0); Total Protein 5.8 g/dL (6.4-8.2)
[2021-05-17] MEDS: metroNIDAZOLE 500MG/100ML 100 ML IV SCH ×3 (06:18→23:00)
[2021-05-17] MEDS: InsuLIN REG 1unit/0.01ml Soln (100units/ml) SC SCH ×4 (06:55→22:00)
[2021-05-17] MEDS: ACCU-CHEK COMFORT CURVE STRIP VI SCH ×4 (06:56→22:00)
[2021-05-17 09:00] VITALS: BP 148/64
[2021-05-17] MEDS: cefTRIAXone 1GM/50ML D5W 50 ML IV SCH (09:15)
[2021-05-17 09:54] LABS: Hepatitis B Surface Antibody Negative (Negative)
[2021-05-17 10:23] LABS: Hepatitis A Total Antibody Negative (Negative)
[2021-05-17] MEDS: CHOLESTYRAMINE 4 GM POWDER GT SCH (11:00)
[2021-05-17] MEDS: CHOLESTYRAMINE 4 GM POWDER PO SCH ×2 (12:00→23:23)
[2021-05-17 12:47] LABS: Hepatitis C Antibody Negative (Negative)
[2021-05-17 13:00] VITALS: BP 148/58
[2021-05-17 17:00] VITALS: BP 161/56
[2021-05-17 22:00] VITALS: BP 144/73
[2021-05-18] MEDS: ONDANSETRON HCL 4 MG/2 ML VIAL IV PRN ×3 (04:06→20:47)
[2021-05-18 05:00] VITALS: BP 149/79
[2021-05-18] MEDS: metroNIDAZOLE 500MG/100ML 100 ML IV SCH ×2 (06:00→14:29)
[2021-05-18] MEDS: ACCU-CHEK COMFORT CURVE STRIP VI SCH ×3 (06:32→17:51)
[2021-05-18] MEDS: InsuLIN REG 1unit/0.01ml Soln (100units/ml) SC SCH ×3 (06:32→17:00)
[2021-05-18 06:43] LABS: Potassium 3.2 mmol/L (3.5-5.1)
[2021-05-18 06:51] LABS: BUN/Creatinine Ratio 17.6; Calcium 7.7 mg/dL (8.5-10.1)
[2021-05-18] MEDS ORDERED: LEVOTHYROXINE SODIUM 100 MCG TAB PO SCH (07:00)
[2021-05-18 08:30] VITALS: BP 99/28
[2021-05-18 09:00] VITALS: BP 136/79
[2021-05-18] MEDS: cefTRIAXone 1GM/50ML D5W 50 ML IV SCH (09:57)
[2021-05-18 13:00] VITALS: BP 131/64
[2021-05-18] MEDS: CHOLESTYRAMINE 4 GM POWDER PO SCH (13:37)
[2021-05-18 17:00] VITALS: BP 151/72
[2021-05-18 20:15] VITALS: BP 99/28
== END 2021-05-18 21:25 | disposition home health service (06) | DRG 391 ==
LOC: EDBD 13:58 → ER 13:58 → TELE 20:31 → TELE-CENTR 05-14 17:38
PROVIDERS: ADMIT Nurse Practitioner; ATTEND Internal Medicine Cardiovascular Disease
DX: A09 Infectious gastroenteritis and colitis, unspecified (principal); U07.1 COVID-19; N17.9 Acute kidney failure, unspecified; E87.0 Hyperosmolality and hypernatremia; R65.10 Systemic inflammatory response syndrome (SIRS) of non-infectious origin without acute organ dysfunction; E87.5 Hyperkalemia; E03.9 Hypothyroidism, unspecified; E86.0 Dehydration; I10 Essential (primary) hypertension; I27.20 Pulmonary hypertension, unspecified; J45.909 Unspecified asthma, uncomplicated; D63.8 Anemia in other chronic diseases classified elsewhere; R74.8 Abnormal levels of other serum enzymes; M79.7 Fibromyalgia; I95.9 Hypotension, unspecified; E11.42 Type 2 diabetes mellitus with diabetic polyneuropathy; G47.33 Obstructive sleep apnea (adult) (pediatric); G89.29 Other chronic pain; R29.6 Repeated falls; Z20.822 Contact with and (suspected) exposure to COVID-19; Z82.0 Family history of epilepsy and other diseases of the nervous system; Z82.49 Family history of ischemic heart disease and other diseases of the circulatory system; Z83.3 Family history of diabetes mellitus; Z88.2 Allergy status to sulfonamides; Z98.84 Bariatric surgery status; Z91.040 Latex allergy status
CPT/HCPCS: 36415; 70450; 71045; 74176; 76775; 80048; 80053; 81001; 82270; 82306; 82570; 82728; 82962; 83036; 83605; 83735; 83880; 83970; 83986; 84100; 84132; 84156; 84300; 84443; 84484; 85025; 85048; 85379; 85610; 85730; 86038; 86704; 86706; 86708; 86803; 87040; 87045; 87340; 87426; 87427; 87493; 93306; 93970; 94640; 96361; 96365; 96366; 96367; 96368; 96372; 96375; 99291; G0378; J0696; J1815; J2405; J3490

== ENCOUNTER → 2021-06-01 | Outpatient (CLI) | payer MEDICARE, BC, OTHER ==
[~2021-06-01] MED LIST changes: +SODIUM CHLORIDE 0.9% 1,000 ML IV ONE
[2021-06-01 10:50] VITALS: BP 69/40
[2021-06-01 11:30] VITALS: BP 82/48
[2021-06-01 12:00] VITALS: BP 102/50
[2021-06-01 13:25] VITALS: BP 104/56
[2021-06-01 15:30] LABS: Basophils # (auto) 0.1 10 ^3/uL (0-0.2); Basophils % (auto) 0.9 % (0.0-2.0); Eosinophils # (auto) 0.1 10 ^3/uL (0-0.8); Hematocrit 29.8 % (36.0-46.0); Hemoglobin 9.7 g/dL (12.2-16.2); Lymphocytes # (auto) 1.8 10 ^3/uL (0.4-5.4); Lymphocytes % (auto) 26.2 % (10.0-50.0); Mean Corpuscular Hemoglobin 29.3 pg (28.0-32.0); Mean Corpuscular Hgb Conc. 32.7 g/dL (32.0-36.0); Mean Corpuscular Volume 89.7 fL (80.0-100.0); Monocytes # (auto) 0.6 10 ^3/uL (0-1.3); Monocytes % (auto) 8.5 % (0.0-12.0); Neutrophils # (auto) 4.3 10 ^3/uL (1.6-8.6); Neutrophils % (auto) 62.4 % (37.0-80.0); Nucleated Red Blood Cells % 0.1 %; Red Blood Cells 3.32 10^6/uL (4.0-5.20); Red Cell Distribution Width 14.5 % (11.8-14.3)
[2021-06-01 15:34] LABS: Calcium 8.9 mg/dL (8.5-10.1); Potassium 4.8 mmol/L (3.5-5.1)
== END | disposition home or self-care (01) ==
LOC: CHF HDHVI 10:49
PROVIDERS: ATTEND Internal Medicine Cardiovascular Disease
DX: I95.9 Hypotension, unspecified (principal); E86.0 Dehydration; I10 Essential (primary) hypertension; J45.909 Unspecified asthma, uncomplicated; E11.42 Type 2 diabetes mellitus with diabetic polyneuropathy; E03.9 Hypothyroidism, unspecified
CPT/HCPCS: 36415; 80048; 85025; 96360; 96361; G0463; J7030

== ENCOUNTER → 2021-06-08 | Outpatient (CLI) | payer MEDICARE, BC, OTHER ==
[2021-06-08 09:50] VITALS: BP 86/41
[2021-06-08 12:15] VITALS: BP 116/50
[2021-06-08 13:38] LABS: Potassium 5.1 mmol/L (3.5-5.1)
== END | disposition home or self-care (01) ==
LOC: CHF HDHVI 09:45
PROVIDERS: ATTEND Internal Medicine Cardiovascular Disease
DX: I95.9 Hypotension, unspecified (principal); E86.0 Dehydration; I12.9 Hypertensive chronic kidney disease with stage 1 through stage 4 chronic kidney disease, or unspecified chronic kidney disease; E11.22 Type 2 diabetes mellitus with diabetic chronic kidney disease; N18.9 Chronic kidney disease, unspecified; J45.909 Unspecified asthma, uncomplicated; E03.9 Hypothyroidism, unspecified
CPT/HCPCS: 36415; 82565; 84132; 84520; 96360; 96361; G0463; J7030

== ENCOUNTER → 2021-10-19 | Outpatient (CLI) | payer MEDICARE, BC, OTHER ==
[~2021-10-19] VITALS: Ht 1 cm; Wt 0.5 kg
[~2021-10-19] MED LIST changes: +IRON SUCROSE 20 mg/ml 10ml VIAL IV ONE; +IRON SUCROSE COMPLEX 200 MG in SODIUM CHL 0.9% 100 ML IV ONE; -SODIUM CHLORIDE 0.9% 1,000 ML IV ONE; +VENOFER IV ONE
[2021-10-19 10:54] VITALS: BP 124/51
[2021-10-19 12:43] VITALS: BP 143/62
== END | disposition home or self-care (01) ==
LOC: CHF HDHVI 10:56
PROVIDERS: ATTEND Internal Medicine Cardiovascular Disease
DX: D64.9 Anemia, unspecified (principal); I12.9 Hypertensive chronic kidney disease with stage 1 through stage 4 chronic kidney disease, or unspecified chronic kidney disease; E11.22 Type 2 diabetes mellitus with diabetic chronic kidney disease; N18.9 Chronic kidney disease, unspecified; E11.42 Type 2 diabetes mellitus with diabetic polyneuropathy; J45.909 Unspecified asthma, uncomplicated; E03.9 Hypothyroidism, unspecified
CPT/HCPCS: 96365; G0463; J1756

== ENCOUNTER → 2021-11-16 | Outpatient (CLI) | payer MEDICARE, BC, OTHER ==
[~2021-11-16] MED LIST changes: +SODIUM FERR GLUC 125 MG in NS 100 ML IV ONE
[2021-11-16 11:10] VITALS: BP 124/65
[2021-11-16 12:44] VITALS: BP 154/59
== END | disposition home or self-care (01) ==
LOC: CHF HDHVI 11:04
PROVIDERS: ATTEND Internal Medicine Cardiovascular Disease
DX: D64.9 Anemia, unspecified (principal); I12.9 Hypertensive chronic kidney disease with stage 1 through stage 4 chronic kidney disease, or unspecified chronic kidney disease; E11.22 Type 2 diabetes mellitus with diabetic chronic kidney disease; N18.9 Chronic kidney disease, unspecified; E11.42 Type 2 diabetes mellitus with diabetic polyneuropathy; E03.9 Hypothyroidism, unspecified; J45.909 Unspecified asthma, uncomplicated
CPT/HCPCS: 96365; G0463; J1756

== ENCOUNTER → 2021-11-19 | Outpatient (CLI) | payer MEDICARE, BC, OTHER ==
[~2021-11-19] MED LIST changes: -IRON SUCROSE 20 mg/ml 10ml VIAL IV ONE; -IRON SUCROSE COMPLEX 200 MG in SODIUM CHL 0.9% 100 ML IV ONE; -SODIUM FERR GLUC 125 MG in NS 100 ML IV ONE; -VENOFER IV ONE
== END | disposition home or self-care (01) ==
LOC: Rad HDHVI 13:04
PROVIDERS: ATTEND Internal Medicine Cardiovascular Disease
DX: I65.23 Occlusion and stenosis of bilateral carotid arteries (principal); R55 Syncope and collapse; E78.5 Hyperlipidemia, unspecified
CPT/HCPCS: 93880

== ENCOUNTER → 2021-11-30 | Outpatient (CLI) | payer MEDICARE, BC, OTHER | END | disposition home or self-care (01) | LOC: Rad HDHVI 12:56 | PROVIDERS: ATTEND Internal Medicine Cardiovascular Disease | DX: I08.3 Combined rheumatic disorders of mitral, aortic and tricuspid valves (principal); R06.02 Shortness of breath | CPT/HCPCS: 93306 ==

== ENCOUNTER → 2021-12-13 | Outpatient (CLI) | payer MEDICARE, BC, OTHER ==
[~2021-12-13] VITALS: Ht 30.5 cm; Wt 0.5 kg
[~2021-12-13] MED LIST changes: +IRON SUCROSE 20 mg/ml 10ml VIAL IV ONE; +VENOFER IV ONE
[2021-12-13 11:40] VITALS: BP 128/61
[2021-12-13 12:55] VITALS: BP 166/74
== END | disposition home or self-care (01) ==
LOC: CHF HDHVI 11:29
PROVIDERS: ATTEND Internal Medicine Cardiovascular Disease
DX: D50.9 Iron deficiency anemia, unspecified (principal); E78.5 Hyperlipidemia, unspecified; I12.9 Hypertensive chronic kidney disease with stage 1 through stage 4 chronic kidney disease, or unspecified chronic kidney disease; E11.22 Type 2 diabetes mellitus with diabetic chronic kidney disease; N18.9 Chronic kidney disease, unspecified; E11.42 Type 2 diabetes mellitus with diabetic polyneuropathy; E03.9 Hypothyroidism, unspecified; J45.909 Unspecified asthma, uncomplicated
CPT/HCPCS: 96365; G0463; J1756

== ENCOUNTER → 2022-01-17 | Outpatient (CLI) | payer MEDICARE, BC ==
[~2022-01-17] MED LIST changes: -IRON SUCROSE 20 mg/ml 10ml VIAL IV ONE; -VENOFER IV ONE
[2022-01-17 16:25] LABS: % Iron Saturation 31.2 % (15-50)
== END | disposition home or self-care (01) ==
LOC: LAB 13:16
PROVIDERS: ATTEND Internal Medicine Cardiovascular Disease
DX: D64.9 Anemia, unspecified (principal)
CPT/HCPCS: 82728; 83010; 83540; 83550

== ENCOUNTER → 2022-08-28 | Day surgery (SDC) | payer MEDICARE, BC, OTHER ==
[2022-08-27 13:21] LABS: Urine Bacteria NONE SEEN /hpf (None Seen); Urine Blood Negative /uL (Negative); Urine Specific Gravity 1.012 (1.001-1.035); Urine WBC 3 /hpf (0 - 5)
[2022-08-27 13:39] LABS: Basophils # (auto) 0 10 ^3/uL (0-0.2); Basophils % (auto) 0.4 % (0.0-2.0); Eosinophils # (auto) 0.3 10 ^3/uL (0-0.8); Eosinophils % (auto) 5.3 % (0.0-7.0); Lymphocytes # (auto) 1.7 10 ^3/uL (0.4-5.4); Mean Corpuscular Hemoglobin 29.9 pg (28.0-32.0); Mean Corpuscular Hgb Conc. 33.2 g/dL (32.0-36.0); Mean Corpuscular Volume 89.9 fL (80.0-100.0); Monocytes # (auto) 0.4 10 ^3/uL (0-1.3); Monocytes % (auto) 6.5 % (0.0-12.0); Neutrophils # (auto) 3.6 10 ^3/uL (1.6-8.6); Neutrophils % (auto) 59.8 % (37.0-80.0); Red Blood Cells 3.67 10^6/uL (4.0-5.20); Red Cell Distribution Width 12.8 % (11.8-14.3); White Blood Cell 6.1 10^3/uL (4.4-10.8)
[2022-08-27 13:43] LABS: BUN/Creatinine Ratio 15.6 (10.0-20.0); Potassium 4.8 mmol/L (3.5-5.1)
[2022-08-27 13:46] LABS: Bilirubin, Total 0.3 mg/dL (0.2-1.0); Total Protein 7.1 g/dL (6.4-8.2)
[2022-08-27 13:48] LABS: INR 0.98 (0.9-1.15); Partial Thromboplastin Time 25.7 sec (24.6-33.4)
[~2022-08-28] VITALS: Ht 30.5 cm; Wt 0.5 kg
[~2022-08-28] MED LIST changes: +ACCU-CHEK COMFORT CURVE STRIP VI ONE; +ACET-222 PO; -BUPR300T28 PO; -CHOL20007 PO; +CHOL500014 PO; +CIPROFLOXACIN 400MG/200ML 200 ML IV ONE; +DIP005TP EX; +DUTA0.5C11 PO; +DexAMETHasone SOD PHOS 10MG/1ML VIAL INJ ONE; +ELUX1TAB PO; +FINE10TA PO; +FLUC200T35 PO; -FLUC200T50 PO; -FLUO20CA19 PO; -KETO2CRE4 EX; +LABETALOL HCL 5 MG/ML 4ML SYRINGE IV PRN; +LIDO5CRE14 EX; +LOP2C PO; +MIDAZOLAM HCL 2MG/2ML 2ml VIAL (1mg/ml) IV PRN; +MIDAZOLAM HCL 2MG/2ML 2ml VIAL (1mg/ml) ONE; +MORPHINE SULFATE INJ 2 MG/ml SYRG IV PRN; +NYSTOIN EX; +ONDANSETRON HCL 4 MG/2 ML VIAL IV PRN; +PROPOFOL 10 MG/ML 20 ML IV ONE; +ROPIVACAINE 0.5% (5MG/ML) 20ML AMPULE IJ ONE; +SERT100T PO; +ePHEDrine SULFATE 50 MG/ML AMP IV PRN; +fentaNYL CITRATE 100 MCG/2 ML VL IV PRN; +fentaNYL CITRATE 100 MCG/2 ML VL ONE
[2022-08-28 11:25] VITALS: BP 135/64
== END | disposition home or self-care (01) ==
LOC: SUR 07:09
PROVIDERS: ATTEND Podiatrist Foot & Ankle Surgery
DX: M20.5X1 Other deformities of toe(s) (acquired), right foot (principal); L89.893 Pressure ulcer of other site, stage 3; E11.9 Type 2 diabetes mellitus without complications; F41.8 Other specified anxiety disorders; J44.9 Chronic obstructive pulmonary disease, unspecified; E03.9 Hypothyroidism, unspecified; Z82.49 Family history of ischemic heart disease and other diseases of the circulatory system; Z83.3 Family history of diabetes mellitus; Z84.89 Family history of other specified conditions; Z88.2 Allergy status to sulfonamides; Z88.6 Allergy status to analgesic agent; Z88.8 Allergy status to other drugs, medicaments and biological substances; Z79.890 Hormone replacement therapy; Z91.040 Latex allergy status; Z88.5 Allergy status to narcotic agent; Z98.890 Other specified postprocedural states
CPT/HCPCS: 28820; 36415; 80053; 81001; 82962; 85025; 85610; 85730; 87075; 87205; J0744; J1100; J2250; J2704; J2795; J3010; L3260

== ENCOUNTER → 2023-02-18 | Outpatient (CLI) | payer MEDICARE, BC ==
[~2023-02-18] MED LIST changes: -ACCU-CHEK COMFORT CURVE STRIP VI ONE; -CIPROFLOXACIN 400MG/200ML 200 ML IV ONE; -CLOT1CRE13 TOP; +CLOT1CRE51 TOP; -DexAMETHasone SOD PHOS 10MG/1ML VIAL INJ ONE; +FLUC200T PO; -FLUC200T35 PO; -LABETALOL HCL 5 MG/ML 4ML SYRINGE IV PRN; -MIDAZOLAM HCL 2MG/2ML 2ml VIAL (1mg/ml) IV PRN; -MIDAZOLAM HCL 2MG/2ML 2ml VIAL (1mg/ml) ONE; -MORPHINE SULFATE INJ 2 MG/ml SYRG IV PRN; -ONDANSETRON HCL 4 MG/2 ML VIAL IV PRN; -PROPOFOL 10 MG/ML 20 ML IV ONE; -ROPIVACAINE 0.5% (5MG/ML) 20ML AMPULE IJ ONE; -ePHEDrine SULFATE 50 MG/ML AMP IV PRN; -fentaNYL CITRATE 100 MCG/2 ML VL IV PRN; -fentaNYL CITRATE 100 MCG/2 ML VL ONE
== END | disposition home or self-care (01) ==
LOC: Rad HDHVI 11:01
PROVIDERS: ATTEND Internal Medicine Cardiovascular Disease
DX: I08.3 Combined rheumatic disorders of mitral, aortic and tricuspid valves (principal); I10 Essential (primary) hypertension
CPT/HCPCS: 93306

== ENCOUNTER → 2023-03-03 | Outpatient (CLI) | payer MEDICARE, BC ==
[~2023-03-03] VITALS: Ht 30.5 cm; Wt 0.5 kg
[~2023-03-03] MED LIST changes: +CYANOCOBALAMIN (B-12) 1000 MCG/1 ML VIAL IM ONE; +CYANOCOBALAMIN (B-12) 1000 MCG/1 ML VIAL ONE; +SODIUM FERR GLUC 62.5MG/5ML 125 MG in SODIUM CHL 0.9% 100 ML IV ONE; +SODIUM FERRIC GLUC CPLEX 62.5MG/5ML VIAL IV ONE
[2023-03-03 11:09] VITALS: BP 134/63; PULSE 87; RESP 18; O2SAT 100
[2023-03-03 12:20] VITALS: BP 125/59; PULSE 77; RESP 20; O2SAT 99
== END | disposition home or self-care (01) ==
LOC: CHF HDHVI 10:51
PROVIDERS: ATTEND Internal Medicine Cardiovascular Disease
DX: D50.9 Iron deficiency anemia, unspecified (principal); R53.83 Other fatigue; R06.02 Shortness of breath; I10 Essential (primary) hypertension
CPT/HCPCS: 96365; 96372; G0463; J2916; J3420

== ENCOUNTER → 2023-03-24 | Outpatient (CLI) | payer MEDICARE, BC ==
[~2023-03-24] MED LIST changes: -CYANOCOBALAMIN (B-12) 1000 MCG/1 ML VIAL IM ONE; -CYANOCOBALAMIN (B-12) 1000 MCG/1 ML VIAL ONE
[2023-03-24 10:50] VITALS: BP 136/60; PULSE 84; RESP 18; O2SAT 100
[2023-03-24 12:05] VITALS: BP 166/74; PULSE 74; RESP 18; O2SAT 100
== END | disposition home or self-care (01) ==
LOC: CHF HDHVI 10:36
PROVIDERS: ATTEND Internal Medicine Cardiovascular Disease
DX: D50.9 Iron deficiency anemia, unspecified (principal); I10 Essential (primary) hypertension; R53.83 Other fatigue
CPT/HCPCS: 96365; G0463; J2916

== ENCOUNTER → 2023-04-07 | Outpatient (CLI) | payer MEDICARE, BC, OTHER ==
[2023-04-07 12:53] VITALS: BP 144/57; PULSE 74; RESP 18; O2SAT 99
[2023-04-07 13:56] VITALS: BP 133/58; PULSE 71; RESP 20; O2SAT 99
== END | disposition home or self-care (01) ==
LOC: CHF HDHVI 12:37
PROVIDERS: ATTEND Internal Medicine Cardiovascular Disease
DX: D50.9 Iron deficiency anemia, unspecified (principal); I10 Essential (primary) hypertension; R53.83 Other fatigue; R06.02 Shortness of breath
CPT/HCPCS: 96365; G0463; J2916

== ENCOUNTER → 2023-04-17 | Outpatient (CLI) | payer MEDICARE, BC, OTHER ==
[2023-04-17 11:10] VITALS: BP 161/68; PULSE 70; RESP 20; O2SAT 100
[2023-04-17 12:27] VITALS: BP 172/77; PULSE 68; RESP 20; O2SAT 100
== END | disposition home or self-care (01) ==
LOC: CHF HDHVI 10:55
PROVIDERS: ATTEND Internal Medicine Cardiovascular Disease
DX: D50.9 Iron deficiency anemia, unspecified (principal); I10 Essential (primary) hypertension
CPT/HCPCS: 96365; G0463; J2916

== ENCOUNTER → 2023-04-23 | Outpatient (CLI) | payer MEDICARE, BC, OTHER ==
[2023-04-23 10:38] VITALS: BP 164/88; PULSE 81; RESP 18; O2SAT 100
[2023-04-23 13:10] VITALS: BP 165/86; PULSE 76; RESP 18; O2SAT 100
== END | disposition home or self-care (01) ==
LOC: CHF HDHVI 10:12
PROVIDERS: ATTEND Internal Medicine Cardiovascular Disease
DX: D50.9 Iron deficiency anemia, unspecified (principal); R53.83 Other fatigue; I10 Essential (primary) hypertension; R06.02 Shortness of breath
CPT/HCPCS: 96365; G0463; J2916

== ENCOUNTER → 2023-05-01 | Outpatient (CLI) | payer MEDICARE, BC, OTHER ==
[~2023-05-01] MED LIST changes: +IRON SUCROSE 20 mg/ml 10ml VIAL IV ONE; -SODIUM FERR GLUC 62.5MG/5ML 125 MG in SODIUM CHL 0.9% 100 ML IV ONE
[2023-05-01 11:05] VITALS: BP 135/64; PULSE 80; RESP 18; O2SAT 100
[2023-05-01 12:34] VITALS: BP 164/75; PULSE 71; RESP 18; O2SAT 100
== END | disposition home or self-care (01) ==
LOC: CHF HDHVI 10:57
PROVIDERS: ATTEND Internal Medicine Cardiovascular Disease
DX: D51.9 Vitamin B12 deficiency anemia, unspecified (principal); D50.9 Iron deficiency anemia, unspecified; I10 Essential (primary) hypertension
CPT/HCPCS: 96365; G0463; J2916

== ENCOUNTER → 2023-05-08 | Outpatient (CLI) | payer MEDICARE, BC, OTHER ==
[~2023-05-08] MED LIST changes: -IRON SUCROSE 20 mg/ml 10ml VIAL IV ONE; +SODIUM FERR GLUC 62.5MG/5ML 125 MG in SODIUM CHL 0.9% 100 ML IV ONE
[2023-05-08 11:09] VITALS: BP 150/65; PULSE 75; RESP 18; O2SAT 100
[2023-05-08 12:30] VITALS: BP 164/68; PULSE 72; RESP 18; O2SAT 100
== END | disposition home or self-care (01) ==
LOC: CHF HDHVI 10:58
PROVIDERS: ATTEND Internal Medicine Cardiovascular Disease
DX: D50.9 Iron deficiency anemia, unspecified (principal); I10 Essential (primary) hypertension
CPT/HCPCS: 96365; G0463; J2916

== ENCOUNTER → 2024-05-14 | Outpatient (CLI) | payer MEDICARE, BC, OTHER ==
[~2024-05-14] MED LIST changes: -LEV100T PO; +LEVO-849 PO; -LOP2C PO; +LOPE2CAP16 PO; -NYSTOIN EX; +NYSTOIN4 EX; -SODIUM FERR GLUC 62.5MG/5ML 125 MG in SODIUM CHL 0.9% 100 ML IV ONE; -SODIUM FERRIC GLUC CPLEX 62.5MG/5ML VIAL IV ONE
== END | disposition home or self-care (01) ==
LOC: Rad HDHVI 13:10
PROVIDERS: ATTEND Internal Medicine Cardiovascular Disease
DX: M81.0 Age-related osteoporosis without current pathological fracture (principal); M85.88 Other specified disorders of bone density and structure, other site
CPT/HCPCS: 77078

== ENCOUNTER 2024-11-02 12:54 | Outpatient (CLI) | payer MEDICARE, BC, OTHER ==
[2024-11-02 12:57] VITALS: BP 114/43; PULSE 75; RESP 16; O2SAT 92
[2024-11-02] MEDS: IRON SUCROSE 20 mg/ml 10ml VIAL IV ONE (13:03)
[2024-11-02] MEDS: IRON SUCROSE COMPLEX 110 ML IV ONE (13:19)
[2024-11-02 14:30] VITALS: BP 128/56; PULSE 76; RESP 16; O2SAT 92
== END 2024-11-02 17:00 | disposition home or self-care (01) ==
LOC: CHF HDHVI 12:54
PROVIDERS: ATTEND Internal Medicine Cardiovascular Disease
DX: D50.9 Iron deficiency anemia, unspecified (principal); I12.9 Hypertensive chronic kidney disease with stage 1 through stage 4 chronic kidney disease, or unspecified chronic kidney disease; E11.22 Type 2 diabetes mellitus with diabetic chronic kidney disease; N18.30 Chronic kidney disease, stage 3 unspecified; E11.42 Type 2 diabetes mellitus with diabetic polyneuropathy; M81.0 Age-related osteoporosis without current pathological fracture; J44.9 Chronic obstructive pulmonary disease, unspecified; Z79.899 Other long term (current) drug therapy
CPT/HCPCS: 96365; G0463; J1756

== ENCOUNTER 2024-12-01 14:16 | Outpatient (CLI) | payer MEDICARE, BC, OTHER ==
[2024-12-01 14:21] VITALS: BP 122/42; PULSE 80; RESP 16; O2SAT 91
[2024-12-01] MEDS: IRON SUCROSE 20 mg/ml 10ml VIAL IV ONE (14:36)
[2024-12-01] MEDS: IRON SUCROSE COMPLEX 110 ML IV ONE (14:36)
[2024-12-01 15:50] VITALS: BP 163/60; PULSE 70; RESP 16; O2SAT 91
== END 2024-12-01 17:00 | disposition home or self-care (01) ==
LOC: CHF HDHVI 14:16
PROVIDERS: ATTEND Internal Medicine Cardiovascular Disease
DX: I12.9 Hypertensive chronic kidney disease with stage 1 through stage 4 chronic kidney disease, or unspecified chronic kidney disease (principal); E11.22 Type 2 diabetes mellitus with diabetic chronic kidney disease; N18.4 Chronic kidney disease, stage 4 (severe); D63.1 Anemia in chronic kidney disease; D50.9 Iron deficiency anemia, unspecified; J44.9 Chronic obstructive pulmonary disease, unspecified; E11.42 Type 2 diabetes mellitus with diabetic polyneuropathy; M81.0 Age-related osteoporosis without current pathological fracture; Z79.899 Other long term (current) drug therapy
CPT/HCPCS: 96365; G0463; J1756

== ENCOUNTER 2024-12-29 14:02 | Outpatient (CLI) | payer MEDICARE, BC, OTHER ==
[~2024-12-29] VITALS: Ht 30.5 cm; Wt 0.5 kg
[2024-12-29 14:35] VITALS: BP 131/61; PULSE 76; RESP 16; O2SAT 94
[2024-12-29] MEDS: IRON SUCROSE COMPLEX 110 ML IV ONE (15:01)
[2024-12-29] MEDS: IRON SUCROSE 20 mg/ml 10ml VIAL IV ONE (15:01)
[2024-12-29 16:09] VITALS: BP 137/62; PULSE 78; RESP 16; O2SAT 94
== END 2024-12-29 17:00 | disposition home or self-care (01) ==
LOC: CHF HDHVI 14:02
PROVIDERS: ATTEND Internal Medicine Cardiovascular Disease
DX: I12.9 Hypertensive chronic kidney disease with stage 1 through stage 4 chronic kidney disease, or unspecified chronic kidney disease (principal); E11.22 Type 2 diabetes mellitus with diabetic chronic kidney disease; N18.4 Chronic kidney disease, stage 4 (severe); D63.1 Anemia in chronic kidney disease; D50.9 Iron deficiency anemia, unspecified; E11.42 Type 2 diabetes mellitus with diabetic polyneuropathy; E11.65 Type 2 diabetes mellitus with hyperglycemia; E11.51 Type 2 diabetes mellitus with diabetic peripheral angiopathy without gangrene; M81.0 Age-related osteoporosis without current pathological fracture; J44.9 Chronic obstructive pulmonary disease, unspecified; K90.9 Intestinal malabsorption, unspecified; E03.9 Hypothyroidism, unspecified; K21.9 Gastro-esophageal reflux disease without esophagitis; M19.90 Unspecified osteoarthritis, unspecified site; E78.5 Hyperlipidemia, unspecified; M79.7 Fibromyalgia; G47.33 Obstructive sleep apnea (adult) (pediatric); Z90.49 Acquired absence of other specified parts of digestive tract; Z98.84 Bariatric surgery status; Z98.890 Other specified postprocedural states; Z79.899 Other long term (current) drug therapy
CPT/HCPCS: 96365; G0463; J1756

== ENCOUNTER 2025-02-09 14:07 | Outpatient (CLI) | payer MEDICARE, BC, OTHER ==
[2025-02-09 14:13] VITALS: BP 129/66; PULSE 73; RESP 16; O2SAT 93
[2025-02-09] MEDS: IRON SUCROSE 20 mg/ml 10ml VIAL IV ONE (14:18)
[2025-02-09] MEDS: IRON SUCROSE COMPLEX 110 ML IV ONE (14:26)
[2025-02-09 16:00] VITALS: BP 157/71; PULSE 75; RESP 16; O2SAT 93
== END 2025-02-09 17:00 | disposition home or self-care (01) ==
LOC: CHF HDHVI 14:07
PROVIDERS: ATTEND Internal Medicine Cardiovascular Disease
DX: D50.9 Iron deficiency anemia, unspecified (principal); I12.9 Hypertensive chronic kidney disease with stage 1 through stage 4 chronic kidney disease, or unspecified chronic kidney disease; E11.22 Type 2 diabetes mellitus with diabetic chronic kidney disease; N18.4 Chronic kidney disease, stage 4 (severe); D63.1 Anemia in chronic kidney disease; K90.9 Intestinal malabsorption, unspecified; E11.42 Type 2 diabetes mellitus with diabetic polyneuropathy; E11.65 Type 2 diabetes mellitus with hyperglycemia; E11.51 Type 2 diabetes mellitus with diabetic peripheral angiopathy without gangrene; M81.0 Age-related osteoporosis without current pathological fracture; J44.9 Chronic obstructive pulmonary disease, unspecified; M79.7 Fibromyalgia; K21.9 Gastro-esophageal reflux disease without esophagitis; E78.5 Hyperlipidemia, unspecified; E03.9 Hypothyroidism, unspecified; M19.90 Unspecified osteoarthritis, unspecified site; G47.33 Obstructive sleep apnea (adult) (pediatric); Z79.899 Other long term (current) drug therapy; Z98.890 Other specified postprocedural states; Z90.49 Acquired absence of other specified parts of digestive tract; Z98.84 Bariatric surgery status
CPT/HCPCS: 96365; G0463; J1756

== ENCOUNTER 2025-02-22 10:20 | Outpatient (CLI) | payer MEDICARE, BC, OTHER ==
[2025-02-22 10:10] VITALS: BP 120/56; PULSE 71; RESP 16; O2SAT 96
[2025-02-22] MEDS: methylPREDNISolone SOD SUCC 125 MG/2 ML VL IV ONE (10:37)
[2025-02-22] MEDS: MEROPENEM 1GM IVPB 50 ML IV ONE ×2 (10:38→11:37)
[2025-02-22 11:25] VITALS: BP 108/41; PULSE 84; RESP 16; O2SAT 96
[2025-02-22] MEDS: methylPREDNISolone SOD SUCC 125 MG/2 ML VL ONE (11:37)
== END 2025-02-22 17:00 | disposition home or self-care (01) ==
LOC: CHF HDHVI 10:20
PROVIDERS: ATTEND Internal Medicine Cardiovascular Disease
DX: L88 Pyoderma gangrenosum (principal); I12.9 Hypertensive chronic kidney disease with stage 1 through stage 4 chronic kidney disease, or unspecified chronic kidney disease; E11.22 Type 2 diabetes mellitus with diabetic chronic kidney disease; N18.4 Chronic kidney disease, stage 4 (severe); D63.1 Anemia in chronic kidney disease; E11.42 Type 2 diabetes mellitus with diabetic polyneuropathy; E11.65 Type 2 diabetes mellitus with hyperglycemia; E11.51 Type 2 diabetes mellitus with diabetic peripheral angiopathy without gangrene; M81.0 Age-related osteoporosis without current pathological fracture; J44.9 Chronic obstructive pulmonary disease, unspecified; M79.7 Fibromyalgia; K21.9 Gastro-esophageal reflux disease without esophagitis; E78.5 Hyperlipidemia, unspecified; E03.9 Hypothyroidism, unspecified; M19.90 Unspecified osteoarthritis, unspecified site; D50.9 Iron deficiency anemia, unspecified; K90.9 Intestinal malabsorption, unspecified; G47.33 Obstructive sleep apnea (adult) (pediatric); Z79.899 Other long term (current) drug therapy; Z98.84 Bariatric surgery status; Z90.49 Acquired absence of other specified parts of digestive tract; Z98.890 Other specified postprocedural states
CPT/HCPCS: 96365; 96375; G0463; J2185; J2919

== ENCOUNTER 2025-03-30 13:57 | Outpatient (CLI) | payer MEDICARE, BC, OTHER ==
[2025-03-30 14:14] VITALS: BP 118/59; PULSE 72; RESP 18; O2SAT 90
[2025-03-30] MEDS: IRON SUCROSE 20 mg/ml 10ml VIAL IV ONE (14:22)
[2025-03-30] MEDS: IRON SUCROSE COMPLEX 110 ML IV ONE (14:24)
[2025-03-30 15:36] VITALS: BP 148/64; PULSE 75; RESP 16; O2SAT 90
== END 2025-03-30 17:00 | disposition home or self-care (01) ==
LOC: CHF HDHVI 13:57
PROVIDERS: ATTEND Internal Medicine Cardiovascular Disease
DX: D50.9 Iron deficiency anemia, unspecified (principal); I12.9 Hypertensive chronic kidney disease with stage 1 through stage 4 chronic kidney disease, or unspecified chronic kidney disease; E11.22 Type 2 diabetes mellitus with diabetic chronic kidney disease; N18.4 Chronic kidney disease, stage 4 (severe); D63.1 Anemia in chronic kidney disease; E11.42 Type 2 diabetes mellitus with diabetic polyneuropathy; E11.51 Type 2 diabetes mellitus with diabetic peripheral angiopathy without gangrene; M79.7 Fibromyalgia; E11.65 Type 2 diabetes mellitus with hyperglycemia; J44.9 Chronic obstructive pulmonary disease, unspecified; K21.9 Gastro-esophageal reflux disease without esophagitis; M81.0 Age-related osteoporosis without current pathological fracture; E78.5 Hyperlipidemia, unspecified; E03.9 Hypothyroidism, unspecified; K90.9 Intestinal malabsorption, unspecified; M19.90 Unspecified osteoarthritis, unspecified site; G47.33 Obstructive sleep apnea (adult) (pediatric); Z79.899 Other long term (current) drug therapy; Z90.49 Acquired absence of other specified parts of digestive tract; Z98.84 Bariatric surgery status; Z98.890 Other specified postprocedural states
CPT/HCPCS: 96365; G0463; J1756